=== PATIENT | male | born 1975 | race Two or more races ===

== ENCOUNTER 2024-12-10 22:30 | Emergency (ER) | payer SELFPAY ==
[2024-12-10 22:31] VITALS: BMI 32.6
[2024-12-10 22:47] VITALS: BP 170/115; BP 171/105; PULSE 69; RESP 20; TEMP 36.7; O2SAT 96
[2024-12-10] MEDS: HYDROcodone/APAP 5/325 TABLET 1 TAB PO (23:44)
--- NOTE | 2024-12-11 03:57 | EDNOTE_ITS ---
ED Extremity Problem RME/HPI General Chief complaint: Extremity Problem,Nontraumatic Stated complaint: LEFT LEG PAIN Time Seen by Provider: 12/10/24 22:59 Arrival date/time: 12/10/24 22:30 49M with history of LLE sciatica caused by some accident 11 years ago presents to ED wanting pain meds for the pain. Patient states only [place] [employer] work. Patient states he recently moved here from the [place]. Patient denies leg swelling, change in character of pain, and SOB. Limitations: no limitations Related Data Previous Rx's ?Medication ?Instructions ?Recorded hydrocodone 5 mg-acetaminophen 325 1 tab PO BID PRN pa in #10 tabs 12/10/24 mg tablet Allergies Allergy/AdvReac Type Severity Reaction Status Date / Time No Known Allergies Allergy Verified 12/10/24 22:33 Review of Systems Review of Systems Systems Reviewed: All systems reviewed, normal except as documented Constitutional Constitutional: Reports system reviewed and no additional complaints, except as documented, Denies fever(s) and Denies headache(s) ENT Ears, Nose, Mouth, and Throat: Denies disequilibrium and Denies headache(s) Cardiovascular Cardiovascular: Reports system reviewed and no additional complaints, except as documented, Denies chest pain and Denies dyspnea Respiratory Respiratory: Reports system reviewed and no additional complaints, except as documented, Denies cough and Denies dyspnea Gastrointestinal Gastrointestinal: Reports system reviewed and no additional complaints, except as documented, Denies abdominal pain, Denies nausea and Denies vomiting Musculoskeletal Musculoskeletal: Reports as per HPI, Reports back pain and Reports radiating pain into limb Neurologic Neurologic: Reports system reviewed and no additional complaints, except as documented, Denies confusion, Denies disequilibrium and Denies headache(s) Psychiatric Psychiatric: Denies confusion Past Medical History Social History SMOKING STATUS: Current every day smoker ED Exam General Limitations: Present no limitations General appearance: Present alert Head Head exam: Present atraumatic Eye Eye exam: Present normal appearance, PERRL and EOMI ENT ENT exam: Present normal exam, normal oropharynx and mucous membranes moist Neck Neck exam: Present normal inspection, full ROM and trachea midline Chest Chest inspection: Present normal inspection and symmetric chest wall rise Respiratory Respiratory exam: Present normal lung sounds bilaterally Cardiovascular Cardiovascular exam: Present regular rate, normal rhythm and normal heart sounds Abdominal Exam Abdominal exam: Present soft and normal bowel sounds Extremities Exam Extremities exam: Present normal inspection and full ROM Back Exam Back exam: Present normal inspection and full ROM Neurological Exam Neurological exam: Present alert, oriented X3 and CN II-XII intact Psychiatric Psychiatric exam: Present normal affect and normal mood Skin Skin exam: Present warm, dry, intact and normal color Course Quality Measures none Orders Category Date Time Status HYDROcodone*/APAP 5/325 [[place] 5/325] Med 12/10/24 23:00 Discontinued 1 tab PO X1 ONE Vital Signs Vital signs: Vital Signs Temperature 98.1 F 12/10/24 22:47 Pulse Rate 69 12/10/24 22:47 Respiratory Rate 20 12/10/24 22:47 Blood Pressure 170/115 H 12/10/24 22:47 Pulse Oximetry (%) 96 12/10/24 22:47 Oxygen Delivery Method Room Air 12/10/24 22:47 O2 at 96% on RA and WNLs Extremity Problem MDM Narrative MDM Narrative:: 49M with history of LLE sciatica caused by some accident 11 years ago presents to ED wanting pain meds for the pain. Patient states only [employer] work. Patient states he recently moved here from the [facility]. Patient denies leg swelling, change in character of pain, and SOB. Physical exam reveals no gross LLE swelling. Normal WOB. Patient is afebrile, alert, but appears to be in pain. Meds and financial counselor given including to establish PCP care and/or pain contract/management. Patient data External records reviewed:: None Clinical information provided by:: patient Social determinants that could affect healthcare access:: none Patient has the following chronic illnesses:: sciatica How is presenting disease/condition affected by chronic disease/condition?: caused by Evaluation data The following diagnostics were reviewed and interpreted by me:: other (specify) (none) Lab and/or radiology exams considered but not ordered:: not ordered Interpretation Summary: n/a Medications / Prescriptions Medications or Prescriptions considered but not ordered:: ordered Medication administrations:: Medication Administration History Discontinued Medications Hydrocodone Bitart/Acetaminophen (Hydrocodone/Apap 5/325 Tablet) 1 tab PO X1 ONE Stop: 12/10/24 23:01 Last Admin: 12/10/24 23:44 Dose: 1 tab Documented By: above Consultations Consultation(s) initiated? (list below): No Diagnosis Extremity Problem Differential Diagnosis: herpes zoster, gout, cellulitis, superficial thrombophlebitis, deep venous thrombosis of upper extremity, lower extremity edema, deep vein thrombosis of lower extremity and other (sciatica) Most likely diagnosis given after review of the tests above:: sciatica Admission Indicated Admission indicated?: not indicated Admission Request Was there a request for admission?: No Disposition Plan Disposition Plan: Discharge Discharge Attestation Discharge Attestation: The patient and all family members were given an opportunity to ask questions and understood the discharge instructions. Discharge instructions specifically effects, indications for sooner follow up or return to the emergency department, and the expected course of current diagnosis. Patient condition: Stable Discharge Plan Plan Patient Disposition: HOME (Self Care) Disposition Comment: Stable Prescriptions/Referrals Prescriptions/Med Rec: New hydrocodone-acetaminophen 5-325 mg tablet 1 tab PO BID MDD 2 PRN (Reason: pain) Qty: 10 0RF Problem List Clinical Impression: Sciatica Patient/Caregiver Discharge Instructions Education Materials: ED Sciatica Additional Instructions: Please follow-up with PCP within 24-48 hours and return immediately if symptoms worsen. If problem persists, recommend outpatient PT and/or MRI follow-up. In the meantime, rest, use ice/heat, and/or compression. Print Language: Belarusian Stand Alone Forms: Patient Portal Info Letter DAVID/ROBERT Supervising Physician DAVID/ROBERT Supervising Physician: Dr. Manrique
== END 2024-12-11 | disposition home or self-care (01) ==
LOC: SERX 23:29
PROVIDERS: Emergency Provider Emergency Medicine
DX: M54.32 Sciatica, left side (principal)
CPT/HCPCS: 99283; A9270

== ENCOUNTER 2024-12-11 10:03 | Emergency (ER) | payer SELFPAY ==
[2024-12-11 10:53] VITALS: BP 186/109; BP 192/107; PULSE 61; RESP 19; TEMP 36.6; O2SAT 97; BMI 31.8
--- NOTE | 2024-12-11 11:00 | PC.NURSE ---
PATIENT SUFFERING FROM EXTREME DISCOMFORT, ELEVATED BLOOD PRESSURE. BF
--- NOTE | 2024-12-11 11:01 | EDNOTE_ITS ---
<Statement entered by Hortencia Vasquez MD - 12/11/24 17:34> As co-signing physician, I was present and available for consult prn. I concur with the plan and care as documented by the midlevel provider. ED General RME/HPI General Chief complaint: Extremity Injury, Lower Stated complaint: LT LEG PAIN Time Seen by Provider: 12/11/24 10:54 Arrival date/time: 12/11/24 10:03 CC: Chronic back pain HPI ongoing for weeks, the patient moved here recently from the [place] area does not have a primary care doctor was seen here last night for same complaint written for narcotics however because he has no insurance pharmacy would not fill his narcotic prescription with dai. Patient now returns stating he is continues to be in pain. At this time I explained to him that probably all the pharmacies will do the same in the small town such as this he needs to get a primary care doctor establish insurance so that his prescriptions can be filled. Patient states pain is unchanged other than increase in severity same character same location same intensity. Patient is noted to be hypertensive as I am sympathetic to this as the patient has been in pain for 3 days, and has had significant lack of sleep. Related Data Previous Rx's ?Medication ?Instructions ?Recorded hydrocodone 5 mg-acetaminophen 325 1 tab PO BID PRN pa in #10 tabs 12/10/24 mg tablet baclofen 20 mg tablet 20 mg PO BID #20 tabs meloxicam 7.5 mg tablet 7.5 mg PO QDAY #10 tabs 11/14 06/09 Allergies Allergy/AdvReac Type Severity Reaction Status Date / Time No Known Allergies Allergy Verified 12/10/24 22:33 Review of Systems Review of Systems Narrative Review of Systems: GEN: No fever, no chills, no weight loss EYES: No discharge, no visual changes, no pain HEENT: No ear pain, no congestion, no sore throat PULM: No shortness of breath, no cough, no congestion CV: No chest pain, no dyspnea on exertion, no palpitations GI: No nausea, no vomiting, no diarrhea, + pain, no constipation : No frequency, no urgency, no dysuria MUSC/SKEL: No joint pain, no back pain SKIN: No rash PSYCH: No hallucinations, no depression HEME/LYMPH: No easy bleeding or bruising tendencies NEURO: No weakness, no headache Past Medical History Social History SMOKING STATUS: Current some day smoker ED Exam Narrative Physical exam: [General: In moderate discomfort but not in any acute distress Head normocephalic HEENT: Within acceptable limits Neck is supple nontender Chest equal chest rise nontender to palpation Respiratory: Clear to auscultation no wheezes crackles or rubs CV: Rate rhythm is regular no murmurs rubs or clicks Abdomen is distended secondary to body habitus soft nontender no masses positive bowel sounds all 4 quadrants Back: Low back tenderness with palpation bilaterally left greater left side than right. No upper back pain no paraspinal tenderness Skin: Intact no petechiae rash induration ulceration or crepitus Extremities: Moving all extremity against resistance cap refill less than 2 seconds neurosensory intact Neuro: Awake alert oriented x3 Gl[place]ow coma 15 no focal deficits] Course Quality Measures none Orders Category Date Time Status oxyCODONE/APAP 5/325 [Percocet 5/325] Med 12/11/24 11:01 Once 2 tab PO X1 ONE Vital Signs Vital signs: Vital Signs Temperature 97.9 F 12/11/24 10:53 Pulse Rate 61 12/11/24 10:53 Respiratory Rate 19 12/11/24 10:53 Blood Pressure 192/107 H 12/11/24 10:53 Pulse Oximetry (%) 97 12/11/24 10:53 Oxygen Delivery Method Room Air 12/11/24 10:53 [facility] Patient data External records reviewed:: [facility] previous records Clinical information provided by:: patient Social determinants that could affect healthcare access:: none Patient has the following chronic illnesses:: Chronic back pain How is presenting disease/condition affected by chronic disease/condition?: exacerbated by Evaluation data The following diagnostics were reviewed and interpreted by me:: other (specify) (None) Lab and/or radiology exams considered but not ordered:: None Interpretation Summary: Patient is seeking narcotic medication that he was on from his prior healthcare provider outside of this area. Here, pharmacies will not accept dai for a person receiving narcotic medications and was not have any insurance. Will discharge the patient home on NSAIDs and muscle relaxers Medications Medications considered but not ordered:: None Medication administrations:: Medication Administration History Oxycodone/Acetaminophen (Oxycodone/Apap 5/325 Tablet) 2 tab PO X1 ONE Stop: 12/11/24 11:02 None Consultations Consultation(s) initiated? (list below): No Diagnosis Differential Diagnosis ED Complaint MDM: Chronic back pain acute on chronic back pain drug-seeking behavior Most likely diagnosis given after review of the tests above:: Chronic back pain Admission Indicated Admission indicated?: not indicated Explain why admission is indicated or not indicated:: Stable for discharge Admission Request Was there a request for admission?: No Disposition Plan Disposition Plan: Discharge Discharge Attestation Discharge Attestation: The patient and all family members were given an opportunity to ask questions and understood the discharge instructions. Discharge instructions specifically effects, indications for sooner follow up or return to the emergency department, and the expected course of current diagnosis. Patient condition: Stable Medical Decision Making Differential Diagnosis Differential Diagnosis: Chronic back pain acute on chronic back pain drug- seeking behavior Discharge Plan Plan Patient Disposition: HOME (Self Care) Patient condition on transfer: Stable Prescriptions/Referrals Prescriptions/Med Rec: New baclofen 20 mg tablet 20 mg PO BID Qty: 20 0RF meloxicam 7.5 mg tablet 7.5 mg PO QDAY Qty: 10 0RF No Action hydrocodone-acetaminophen 5-325 mg tablet 1 tab PO BID MDD 2 PRN (Reason: pain) Qty: 10 0RF Problem List Clinical Impression: Back pain Patient/Caregiver Discharge Instructions Education Materials: ED Back Pain (Acute or Chronic) Print Language: Hungarian Stand Alone Forms: Krissy Award Info., Patient Portal Info Letter, Work/School Release PA/[employer] Supervising Physician PA/[employer] Supervising Physician: Qasim Fuller ENP
[2024-12-11] MEDS: oxyCODONE/APAP 5/325 TABLET 2 TAB PO (11:17)
== END 2024-12-11 11:35 | disposition home or self-care (01) ==
LOC: SERX 11:18
PROVIDERS: Emergency Provider Emergency Medicine
DX: M54.9 Dorsalgia, unspecified (principal); Z59.71 Insufficient health insurance coverage; I10 Essential (primary) hypertension
CPT/HCPCS: 99283; A9270